=== PATIENT | male | born 1945 | race Caucasian/White ===

== ENCOUNTER 2020-05-06 11:39 | Outpatient (CLI) | payer MEDICARE, OTHER, SELFPAY ==
--- NOTE | ~2020-05-06 | CT_ITS ---
EXAMINATION: CT abdomen pelvis w con DATE: 05/06/2020 12:31 INDICATION: Prostate cancer TECHNIQUE: Computed tomography (CT) of the abdomen and pelvis was performed without intravenous contr ast. Automated exposure control and iterative reconstruction technique were employed. The dose-length product was 1062.94 mGy-cm. COMPARISON: None FINDINGS: Minimal atelectasis in the left lower lobe. Small pneumatocele in the right lower lobe. Arch size is normal. No pericardial or pleural effusion. There is wall thickening in the visualized distal esophag us which could be seen with reflux. 2 mm intraluminal density at the neck of the otherwise normal-mery earing gallbladder suspicious for gallstone. Diffuse hepatic steatosis. Spleen, pancreas and bilatera l adrenal glands are normal. 10 mm low-attenuation cyst at the lower pole of the right kidney. Bowels including the appendix are normal. Status post prostatectomy. Bladder is otherwise unremarkable. No free intraperitoneal gas or fluid. No pathologically enlarged abdominal or pelvic lymphadenopathy. Th ere are bridging osteophytes at multiple levels in the lower thoracic spine, consistent with diffuse idiopathic skeletal hyperostosis (DISH). Mild lumbar dextrocurvature with moderate to severe spondylo sis. Moderate bilateral hip osteoarthritis. Chronic fracture deformity at the calcified anterior left costochondral cartilage. 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 No other suspicious lytic or blastic bone lesions. Ank ylosis at the bilateral sacral iliac joints. IMPRESSION: 1. No evident metastatic disease. 2. 2 mm intraluminal density neck the otherwise normal gallbladder suspicious for cholelithiasis. 3. Diffuse hepatic steatosis. Reviewed, dictated and finalized at location A. IMPRESSION: 1. No evident metastatic disease. 2. 2 mm intraluminal density neck the otherwise normal gallbladder suspicious f or cholelithiasis. 3. Diffuse hepatic steatosis.
--- NOTE | ~2020-05-06 | NM_ITS ---
EXAMINATION: NM bone scan whole body DATE: 05/06/2020 14:58 INDICATION: Prostate cancer. TECHNIQUE: 21.6 mCi Tc-99m HDP was administered intravenously. Delayed whole-body scintigrams were o btained. COMPARISON: CT abdomen and pelvis 05/06/2020, bone scan 05/19/2016 FINDINGS: There is joint-centered increased activity in the knees, feet, right ankle, acromioclavicul ar joints, and sternoclavicular joints without comparison, likely osteoarthritis. There are foci of i ncreased activity in the spine correlating with spondylosis by CT. IMPRESSION: 1. No evidence of metastatic disease. Reviewed, dictated and finalized at location A.
[2020-05-06 12:25] LABS: Estimated Glomerular Filt Rate 37
== END 2020-05-06 11:40 | disposition home or self-care (01) ==
PROVIDERS: PCP Family Medicine; Visit Provider Urology
DX: C61 Malignant neoplasm of prostate (principal); K76.0 Fatty (change of) liver, not elsewhere classified
CPT/HCPCS: 74177; 78306; A9561; Q9967

== ENCOUNTER 2022-04-18 10:03 | Outpatient (CLI) | payer MEDICARE, OTHER, SELFPAY ==
--- NOTE | ~2022-04-18 | NM_ITS ---
EXAMINATION: NM bone scan whole body DATE: 04/18/2022 13:51 INDICATION: Prostate cancer TECHNIQUE: 24 mCi Tc-99m HDP was administered intravenously. Delayed whole-body scintigrams were obt ained. COMPARISON: Bone scan dated 05/06/[address] abdomen pelvis dated 04/18/2022 FINDINGS: Likely degenerative joint centered uptake at the bilateral chronic likely joints, left knee, right an kle and bilateral feet. There is also mild likely enthesopathic uptake at the bilateral posterior kaylyn caneal tuberosities. Mild discogenic uptake with corresponding severe disc height loss and degenerati ve endplate changes at the left side of L4-L5. No other suspicious foci of abnormal bone uptake to vargas ggest metastatic disease. IMPRESSION: 1. No evidence of metastatic disease. Reviewed, dictated and finalized at location A.
== END 2022-04-18 10:04 | disposition home or self-care (01) ==
LOC: ANHIMG 10:06
PROVIDERS: PCP Family Medicine; Visit Provider Urology
DX: C61 Malignant neoplasm of prostate (principal)
CPT/HCPCS: 78306; A9561

== ENCOUNTER → 2022-04-18 10:34 | Outpatient (CLI) | payer MEDICARE, OTHER, SELFPAY ==
--- NOTE | ~2022-04-18 | CT_ITS ---
EXAMINATION: CT abdomen pelvis w con DATE: 04/18/2022 11:05 INDICATION: Prostate cancer. TECHNIQUE: Computed tomography (CT) of the abdomen and pelvis was performed with 100 mL Omnipaque 350 intravenous contrast. Automated exposure control and iterative reconstruction technique were employe d. The dose-length product was 1105.82 mGy-cm. COMPARISON: CT abdomen and pelvis 05/06/2020, bone scan 04/18/2022 FINDINGS: The visualized portions of the lung bases demonstrate mild atelectasis. No pleural effusion . The heart size is normal. No pericardial effusion. There is wall thickening of the distal esophagus , likely esophagitis. There are 4 masses at the liver surface measuring up to 5.5 x 2.2 cm. There are no masses elsewhere in the peritoneum to suggest that these are peritoneal implants rather than live r masses. The gallbladder, spleen, pancreas, and adrenal glands are normal. There is cortical thinnin g of the kidneys. There is a 9 mm cyst in right kidney. The appendix is normal. There are no patholog ically enlarged lymph nodes. There is no free intraperitoneal fluid. There are changes of prostatecto my. 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 There is severe lumbar spondylosis. IMPRESSION: 1. New liver masses, consistent with metastatic disease. Ultrasound-guided core needle biopsy is ciera mmended. Reviewed, dictated and finalized at location B. IMPRESSION: 1. New liver masses, consistent with metastatic disease. Ultrasound-guided core needle biopsy is recommended.
[2022-04-18 10:57] LABS: Estimated Glomerular Filt Rate 42
== END ==
PROVIDERS: PCP Family Medicine; Visit Provider Urology
DX: C61 Malignant neoplasm of prostate (principal); N28.1 Cyst of kidney, acquired; M47.816 Spondylosis without myelopathy or radiculopathy, lumbar region
CPT/HCPCS: 74177; Q9967

== ENCOUNTER 2022-05-10 03:58 | Outpatient (CLI) | payer MEDICARE, OTHER, SELFPAY ==
[2022-04-29 08:33] VITALS: BMI 31.4
--- NOTE | 2022-04-29 08:34 | PC.NURSE ---
Pre Radiology instructions Report to the Outpatient Waiting Room, entrance under the green pavilion located off [facility], at time ___8:30AM____ on date _05/10/22____. Procedure Time: _10:30AM . YOU MAY BE MONITORED AT HOSPITAL FOR UP TO 4 HOURS AFTER YOUR PROCEDURE. One visitor will be allowed to accompany the patient into the hospital. The visitor will be instructed to remain with patient at all times or leave the building due to restrictions. We will allow the visitor to come back to the postoperative area when patient is ready. NO children visitors allowed at this time. You and your visitor will be asked to self-screen and do not enter if you have any COVID symptoms. A mask is required within the hospital. Patients are to have no food or drink 6 hours prior to procedure time Driving will be restricted after the procedure, you must have a person to drive you home. Labs will be drawn in preop area and once reviewed, you will be taken to radiology area for procedure. When the procedure is completed, you will be taken to outpatient where you will be monitored for several hours. You may have one visitor in this area. Other than holding anti-coagulants, patient may take other medication(s) as scheduled. Prior to your appointment date patients are instructed to hold anti-coagulants after discussing with ordering provider to stop. If unable to discontinue anti-coagulants please notify radiologist. No aspirin or warfarin (Coumadin) for 7 days prior to the procedure. No clopidogrel (Plavix), ticagrelor (Brilinta), prasugrel (Effient) or dabigatran (Pradaxa) for 5 days prior to the procedure. No rivaroxaban (Xarelto), apixaban (Eliquis), dipyridamole (Aggrenox or Persantine) or cilostazol (Pletal) for 2 days prior to the procedure. Medications to discontinue per physician: NONE Date to take last dose: Please leave all valuables, including medications, at home the day of procedure. The hospital will not accept responsibility for valuables. Wear comfortable, loose fitting clothing. Follow any additional instructions given to you from ordering provider. Telephone instructions given to ___PATIENT and asked if any additional questions and then verbalized understanding. Patient advised to call scheduling provider office or registration scheduling [phone] if any additional questions.
[2022-05-10] VITALS (9 sets, daily range): BP systolic 119–147; BP diastolic 57–74; PULSE 49–68; RESP 14–18; TEMP 36.4; O2SAT 94–99
--- NOTE | ~2022-05-10 | US_ITS ---
EXAMINATION: US biopsy liver DATE: 05/10/2022 11:57 INDICATION: Prostate cancer with multiple masses along the periphery of the liver. TECHNIQUE: The procedure including the risks and benefits was discussed with the patient. Risks discu ssed included bleeding and infection. The patient understood the risks and agreed to proceed. The sk in overlying the posterolateral right hepatic lobe was prepped and draped in usual sterile fashion. Anesthetic was administered with 1% lidocaine subcutaneously. An 18 gauge core biopsy needle was adv anced under continuous ultrasound observation to the lesion of interest. 6 core biopsy specimens wer e obtained. The needle was removed and the entry site was cleaned and dressed. Post procedure ultra sound demonstrated no hemorrhage. FINDINGS: Ultrasound images demonstrate a 3.6 x 3.2 x 2.3 cm hypoechoic nodule along the periphery of the liver. There is echogenic fat in the acute margins at the junction of the mass in the liver and on one of the biopsies of the mass appeared to move with withdrawal of the needle separately from the liver favoring an extrahepatic potentially peroneal origin. IMPRESSION: 1. Successful Ultrasound-guided biopsy of a 3.6 cm mass at the periphery of the liver, imaging appear ance favors a peritoneal rather than hepatic origin. Reviewed, dictated and finalized at location A. IMPRESSION: 1. Successful Ultrasound-guided biopsy of a 3.6 cm mass at the periphery of the liver, imaging appearance favors a peritoneal rather than hepatic origin.
[2022-05-10] MEDS: SODIUM CHLORIDE 0.9% IV 1,000 ML 30 ML IV CONT (09:14)
[2022-05-10 09:18] LABS: Immature Platelet Fraction Pct 4.2 % (0.9-11.2); Mean Platelet Volume 10.1 fl (7.4-10.4); Platelet Count Result 148 k/mm3 (150-375)
[2022-05-10 09:28] LABS: INR 1.1; Prothrombin Time 13.6 Seconds (11.1-14.7)
== END 2022-05-10 15:45 | disposition home or self-care (01) ==
PROVIDERS: Radiology Diagnostic Radiology; PCP Family Medicine; Referring Provider Urology; Visit Provider Radiology Diagnostic Radiology
PROC: BF45ZZZ Ultrasonography of Liver (ICD-10-PCS; CPT 47000; principal; 2022-05-10 10:30)
DX: C61 Malignant neoplasm of prostate (principal); C78.7 Secondary malignant neoplasm of liver and intrahepatic bile duct
CPT/HCPCS: 36415; 47000; 76942; 85049; 85055; 85610; 88307; 88342; J7030

== ENCOUNTER 2024-11-08 03:12 | Day surgery (SDC) | payer MEDICARE, OTHER, SELFPAY ==
[2024-11-05 14:48] VITALS: BMI 28.5
--- OUTSIDE RECORDS SUMMARY | 2024-11-08 03:23 | XMS_ITS | Clinical Summary ---
[facility] Organization [facility] Address [address] [place]: [place] [address] Care Team Providers Care Associate Manager [employer]iliate Marketing Name Role Phone Unavailable Primary Care Provider Unavailabl e Medications allopurinoL (ZYLOPRIM) 300 mg tablet Take 1 Tablet (300 mg) by mouth daily. 30 Tablet 2 Active fluorouracil 5 % Cream Apply to affected areas twice daily for two weeks as directed 40 Gram 3 2 Active allopurinoL (ZYLOPRIM) 300 mg tablet Take 1 Tablet (300 mg) by mouth daily. 90 Tablet 2 12/10/2022 10:00 AM CDT 2 Active amLODIPine (NORVASC) 5 mg tablet Take 1 Tablet (5 mg) by mouth daily. 90 Tablet 3 08/07/2022 3:24 PM RECREATION THERAPY DIRECTOR 2 Active ALPRAZolam (XANAX) 0.25 mg tablet Take 1 Tablet (0.25 mg) by mouth 3 times daily as needed. 60 Tablet 2 Active triamcinolone acetonide (KENALOG) 0.1 % Cream Apply twice daily to rash for up to 2 weeks per month as needed. 453.6 Gram 1 3 Active nirmatrelvir-ri tonavir (Paxlovid, EUA,) 300(150mg x 2)-100 mg oral pack take TWO 150 mg tablets of nirmatrelvir with ONE 100 mg tablet of ritonavir twice daily for 5 days PO 30 Each 3 Active amoxicillin-cla vulanate (AUGMENTIN) 875-125 mg tablet TAKE 1 TABLET BY MOUTH TWICE DAILY UNTIL GONE 14 Tablet 11/18/2022 4:02 PM CDT 3 Active hydroCHLOROthia zide 25 mg tablet Take 1 Tablet (25 mg) by mouth daily. 30 Tablet 01/13/2023 3:44 PM CDT 3 Active triamterene-hyd roCHLOROthiazid e (MAXZIDE 25) 37.5-25 mg tablet Take 1 Tablet by mouth daily in the morning. 90 Tablet 1 09/17/2023 3:35 PM RECREATION THERAPY DIRECTOR 4 Active ALPRAZolam (XANAX) 0.25 mg tablet Take 1 Tablet (0.25 mg) by mouth 3 times daily as needed for anxiety 60 Tablet 1 09/17/2023 3:35 PM RECREATION THERAPY DIRECTOR 4 Active triamcinolone acetonide (KENALOG) 0.1 % Cream Apply to the affected area(s) four times daily 80 Gram 01/24/2024 6:36 PM CDT 4 Active acetaminophen-c odeine (TYLENOL #3) 300-30 mg tablet Take 1-2 Tablets by mouth every 6 hours as needed for pain. 30 Tablet 02/29/2024 3:53 PM CDT 4 Active triamterene-hyd roCHLOROthiazid e (MAXZIDE 25) 37.5-25 mg tablet Take 1 tablet by mouth every morning 90 Tablet 1 06/06/2024 1:30 PM RECREATION THERAPY DIRECTOR 4 Active ALPRAZolam (XANAX) 0.25 mg tablet Take 1 Tablet (0.25 mg) by mouth 3 times daily as needed. 60 Tablet 1 06/06/2024 1:23 PM RECREATION THERAPY DIRECTOR 4 Active bromfenac (Prolensa) 0.07 % Drops solution ADMINISTER 1 DROP IN BOTH EYES ONCE DAILY. 3 mL 1 5 Active Prolensa 0.07 % Drops solution Instill one drop into each eye one time daily as directed. 3 mL 5 Active Encounters Date Type Department Care Team Description 10/08/2024 External Device Data [facility] ABSTRACTION Provider, Abstract from Last 3 Months Social History Tobacco Use Types Packs/Day Years Used Date Smoking Tobacco: Never Assessed Sex and Gender Information Value Date Recorded Sex Assigned at Not on file Legal Sex Male 3:27 PM CDT Gender Identity Not on file Sexual Orientation Not on file Plan of Treatment Health Maintenance Due Date Last Done Comments DTAP/TDAP/TD VACCINES (1 - Tdap) 10/24/1966 PNEUMOCOCCAL VACCINE 50+ YEARS (1 of 1 - PCV) 10/24/18 98 ZOSTER VACCINE (1 of 2) 10/24/1997 RSV VACCINE (60+ or ) (1 - 1-dose 75+ series) 10/24/2022 INFLUENZA VACCINE (#1) 2024 Insurance RX [facility] Medicare Part D RX [employer] Medicare Part D RX [employer] ([employer]) [employer] RX [employer] Medicare Part B RX [employer]
--- OUTSIDE RECORDS SUMMARY | 2024-11-08 03:23 | XMS_ITS | Clinical Summary ---
Author Organization [facility] [address] Address [address] [place] [address] Care Team Providers Care Silo Man Name Role Phone Mook Gonzalez MD Primary Care Provider [phone] Allergies No known active allergies Medications ALPRAZolam (XANAX) 0.25 mg tabletIndication s:anxiety Take 1 tablet (0.25 mg total) by mouth daily as needed for anxiety One a week - or 2. 3 Active triamterene-hydr oCHLOROthiazide 37.5-25 mg per tabletIndication s:HTN Take 1 tablet/capsule by mouth every morning 3 Active darolutamide (NUBEQA) 300 mg tabletIndication s:Adenocarcinoma of prostate (HCC) Take 2 tablets (600 mg total) by mouth 2 (two) times a day Swallow tablets whole, take with food. 120 tablet 11 4 025 Active fexofenadine (CRUZ) 60 mg tabletIndication s:Allergic Conjunctivitis,A llergic Rhinitis Take 1 tablet (60 mg total) by mouth daily as needed (allergies) Active fluticasone propionate (FLONASE) 50 mcg/actuation nasal sprayIndications :Allergic Rhinitis Administer 1 spray into each nostril daily as needed for allergies Active docusate sodium (COLACE) 50 mg capsuleIndicatio ns:constipation Take 1 capsule (50 mg total) by mouth 2 (two) times a day as needed for constipation Active senna (SENOKOT) 8.6 mg tabletIndication s:constipation Take 1 tablet by mouth community education coordinator before breakfast Active acetaminophen (TYLENOL) 500 mg tabletIndication s:Pain Take 2 tablets (1,000 mg total) by mouth every 6 (six) hours as needed for pain Active naproxen (ALEVE) 220 mg tabletIndication s:Pain Take 1 tablet (220 mg total) by mouth every 12 (twelve) hours as needed for pain or headaches Active acetaminophen-as pirin-caffeine (EXCEDRIN MIGRAINE) 250-250-65 mg per tabletIndication s:Migraine Take 1 tablet by mouth every 6 (six) hours as needed for headaches Active Prolensa 0.07 % dropsIndications :Post-Op Ocular Inflammation Administer 1 drop into the right eye community education coordinator before breakfast 5 Active moxifloxacin (VIGAMOX) 0.5 % ophthalmic solutionIndicati ons:post eye surgery Administer 1 drop into the right eye 4 (four) times a day 5 Active prednisoLONE acetate (PRED FORTE) 1 % ophthalmic suspensionIndica tions:Severe Ocular Inflammation Administer 1 drop into the right eye 4 (four) times a day 5 Active Active Problems Problem Noted Date Diagnosed Date Malignant neoplasm metastatic to liver 2 Hepatic steatosis 06/17/2022 Adenocarcinoma of prostate 06/14/2022 Overview (06/14/2022): Diagnosed May. GL 7 RP & IMRT done. Consult with Dr Erin Wilkerson 06-21-22. Sinus bradycardia 01/31/2017 Resolved Problems Problem Noted Date Diagnosed Date Resolved Date Nuclear sclerotic cataract of right eye 06/04/2024 07/31/2024 Nuclear sclerotic cataract of left eye 06/04/2024 08/14/2024 Encounters Date Type Department Care Team Description 11/05/2024 12:15 PM CDT Infusion [facility] - Infusion [address] [facility] Floor 6 [place] [address] Malignant neoplasm metastatic to liver (HCC) (Primary Dx); Adenocarcinoma of prostate (HCC) 11/05/2024 11:15 AM CDT Office Visit [facility] [address] [facility] Floor 5 [place] [address] Sameer Wilkerson MD Adenocarcinoma of prostate (HCC) (Primary Dx); Malignant neoplasm metastatic to liver (HCC) 11/05/2024 10:15 AM CDT Lab [facility] - Lab Collection [facility] [facility] Floor 5 [place] [address] Adenocarcinoma of prostate (HCC); Malignant neoplasm metastatic to liver (HCC) 08/14/2024 9:30 AM CUSTOMER SERVICE ASSOCIATE - 08/14/2024 10:30 AM CUSTOMER SERVICE ASSOCIATE Surgery [facility] Operating [facility]) [address] [place] [id number] Yamil Castillo MD COMPLEX EXTRACTION CATARACT - PHACOEMULSIFICATION AND LENS IMPLANT 08/14/2024 9:24 AM CUSTOMER SERVICE ASSOCIATE Anesthesia Event [facility] ([facility]) [address] [place] [phone] Crispin aMrk MD Brake, Barbara E., NP 08/14/2024 7:22 AM CUSTOMER SERVICE ASSOCIATE - 08/14/2024 11:16 AM CUSTOMER SERVICE ASSOCIATE Hospital Encounter [facility] ([facility]) [address] [place] [phone] Yamil Castillo MD Discharge Disposition: Discharge to home or self care 08/13/2024 12:30 PM CUSTOMER SERVICE ASSOCIATE Infusion [facility] - Infusion [address] [facility] Floor 6 [place] [address] Malignant neoplasm metastatic to liver (HCC) (Primary Dx); Adenocarcinoma of prostate (HCC) 08/13/2024 11:30 AM CUSTOMER SERVICE ASSOCIATE Office Visit [facility] [address] [place] [address] [address] 5 [place] [address] Sameer Wilkerson MD Adenocarcinoma of prostate (HCC) (Primary Dx); Malignant neoplasm metastatic to liver (HCC) 08/13/2024 10:30 AM CUSTOMER SERVICE ASSOCIATE Lab [facility] - Lab Collection [facility] [facility] Floor 5 [place] [address] Adenocarcinoma of prostate (HCC); Malignant neoplasm metastatic to liver (HCC) from Last 3 Months Immunizations Immunization Administration Dates Next Due Influenza, Quadrivalent, Rec ombinant, Egg Free, Preservative Free, Intramuscular 03/19/2019,06/25/2018 ZOSTER LIVE 08/25/2014 Surgical History Surgery Date Site/Laterality Comments PROSTATECTOMY around 2017 COLONOSCOPY around 2009 CATARACT EXTRACTION 07/31/2024 Right Medical History Medical History Date Comments Hypertension Sleep apnea wears cpap night ly Prostate cancer (HCC) Family History Medical History Relation Name Comments Cancer Father Heart failure Mother Anesthesia problems Neg Hx Relation Name Status Comments Brother Alive Father Mother Sister Alive Social History Tobacco Use Types Packs/Day Years Used Date Smoking Tobacco: Former Cigarettes 1 13 1 967 - 1980 Smokeless Tobacco: Never Tobacco Cessation:Counseling Given: Not Answered AUDIT-C Answer Date Recorded Q1: How often do you have a drink containing alcohol? 4 or more times a week 08/14/2024 Q2: How many drinks containi ng alcohol do you have on a typical day when you are drinking? 1 or 2 Q3: How often do you have si x or more drinks on one occasion? Never 08/14/2024 Personal Safety Answer Date Recorded Have you ever been in or are you currently in a harmful physical or emotional relationship or is someone making you feel afraid or unsafe? Denies 08/14/2024 Sex and Gender Information Value Date Recorded Sex Assigned at Not on file Legal Sex Male 6:21 AM CUSTOMER SERVICE ASSOCIATE Gender Identity Not on file Sexual Orientation Not on file Obstetrics History Last Filed Vital Signs Vital Sign Reading Time Taken Comments Blood Pressure 132/64 11/05/2024 10:44 AM CDT Pulse 65 11/05/2024 10:44 AM CDT Temperature 36.6 C (97.8 F) 11/05/2024 10:44 AM CDT Respiratory Rate 18 11/05/2024 10:44 AM CDT Oxygen Saturation 100% 11/05/2024 10:44 AM CDT Inhaled Oxygen Concentration - - Weight 94.8 kg (209 lb) 11/05/2024 10:44 AM CDT Height 181.7 cm (5' 11.54 ) 11/05/2024 10:44 AM CDT Body Mass Index 28.72 11/05/2024 10:44 AM CDT Plan of Treatment Health Maintenance Due Date Last Done Comments Depression Screening 1945 Hepatitis C Screening 1945 DTaP/Tdap/Td Vaccine (1 - Tdap) 10/24/1958 Hepatitis B Screening 10/24/1965 Pneumococcal vaccine 65+ (1 of 2 - PCV) 10/24/1966 Well Visit 65+ 10/24/2012 Zoster Vaccine (1 of 2) 10/20/2014 08/25/2014 Influenza Vaccine (Season Ended) 2025 03/19/20 19, 06/25/2018 Fall Risk Assessment 08/14/2025 08/14/2024 Abdominal Aortic Aneurysm (A AA) Screen Completed 05/14/2024, 06/13/2023, 12/15/2022, Additional history exists Medical Devices Implanted Type Area Electron Beam Welding Machine Operator Device Identifier Shelf Expiration Date Model / Serial / Lot [employer] Lens Iol Monofocal Anterior Biconvex Optic Single Piece Tecnis Simplicity 6.0x13.0 +23.5d Hydrophobic Acrylic [id number] - [id number] - [id number] Implanted:Qty: 1 on 08/14/2024 by Yamil Castillo MD at [facility] Lens Left: Eye [employer] [id number] 03/19/2027 [id number] / [id number] / 0 [employer] Lens Iol Tecnis Simplicity Single Piece Clear Caribou 22.5 Diopter [id number] - [id number] - [id number] Implanted:Qty: 1 on 07/31/2024 by Yamil Castillo MD at [facility] Right: Eye [employer] [id number] 05/27/2026 [id number] / [id number] / Procedures Procedure Name Priority Date/Time Associated Diagnosis Comments EGFR STAT 11/05/2024 10:19 AM CDT Adenocarcinoma of prostate (HCC) Malignant neoplasm metastatic to liver (HCC) LACTATE DEHYDROGENASE Routine 11/05/2024 10:19 AM CDT Adenocarcinoma of prostate (HCC) Malignant neoplasm metastatic to liver (HCC) COMPREHENSIVE METABOLIC PANEL STAT 11/05/2024 10:19 AM CDT Adenocarcinoma of prostate (HCC) Malignant neoplasm metastatic to liver (HCC) PSA DIAGNOSTIC Routine 11/05/2024 10:19 AM CDT Adenocarcinoma of prostate (HCC) Malignant neoplasm metastatic to liver (HCC) PSA DIAGNOSTIC Routine 11/05/2024 10:19 AM CDT Adenocarcinoma of prostate (HCC) Malignant neoplasm metastatic to liver (HCC) DIFFERENTIAL AUTO Routine 11/05/2024 10: 14 AM CDT Adenocarcinoma of prostate (HCC) Malignant neoplasm metastatic to liver (HCC) CBC WITH AUTO DIFFERENTIAL Routine 11/05/2024 10:14 AM CDT Adenocarcinoma of prostate (HCC) Malignant neoplasm metastatic to liver (HCC) EXTRACTION CATARACT WITH LENS IMPLANT. 08/14/2024 9:27 AM CUSTOMER SERVICE ASSOCIATE Nuclear sclerotic cataract of left eye Abnormal function of pupil of left eye EGFR STAT 08/13/2024 10:34 AM CUSTOMER SERVICE ASSOCIATE Adenocarcinoma of prostate (HCC) Malignant neoplasm metastatic to liver (HCC) DIFFERENTIAL AUTO Routine 08/13/2024 10: 34 AM CUSTOMER SERVICE ASSOCIATE Adenocarcinoma of prostate (HCC) Malignant neoplasm metastatic to liver (HCC) LACTATE DEHYDROGENASE Routine 08/13/2024 10:34 AM CUSTOMER SERVICE ASSOCIATE Adenocarcinoma of prostate (HCC) Malignant neoplasm metastatic to liver (HCC) CBC WITH AUTO DIFFERENTIAL Routine 08/13/2024 10:34 AM CUSTOMER SERVICE ASSOCIATE Adenocarcinoma of prostate (HCC) Malignant neoplasm metastatic to liver (HCC) COMPREHENSIVE METABOLIC PANEL STAT 08/13/2024 10:34 AM CUSTOMER SERVICE ASSOCIATE Adenocarcinoma of prostate (HCC) Malignant neoplasm metastatic to liver (HCC) PSA DIAGNOSTIC Routine 08/13/2024 10:34 AM CUSTOMER SERVICE ASSOCIATE Adenocarcinoma of prostate (HCC) Malignant neoplasm metastatic to liver (HCC) VITAMIN D 25 HYDROXY Routine 08/13/2024 10:34 AM CUSTOMER SERVICE ASSOCIATE Adenocarcinoma of prostate (HCC) Malignant neoplasm metastatic to liver (HCC) TOTAL TESTOSTERONE Routine 08/13/2024 10 :34 AM CUSTOMER SERVICE ASSOCIATE Adenocarcinoma of prostate (HCC) Malignant neoplasm metastatic to liver (HCC) CT CHEST ABDOMEN PELVIS W CONTRAST Schedule Routine, Read Routine (OP Routine) 05/14/2024 11:34 AM CDT Adenocarcinoma of prostate (HCC) Malignant neoplasm metastatic to liver (HCC) from Last 3 Months or Most Recently Relevant to Health Maintenance Results * (ABNORMAL) eGFR (11/05/2024 10:19 AM CDT) eGFR 35(L) >=60 mL/min/1. 73 m2 Comment: Interpretive Data Reference Interval Normal >/= 90 mL/min/1.73m2 Mildly decreased* 60 - 89 mL/min/1.73m2 Mildly to moderately decreased 45 - 59 mL/min/1.73m2 Moderately to severely decreased 30 - 44 mL/min/1.73m2 Severely decreased 15 - 29 mL/min/1.73m2 Kidney Failure < 15 mL/min/1.73m2 *Relative to young adult level Estimated glomerular filtration rate is determined by the 2020 CKD-EPI equation recommended by the National Kidney Foundation (A Unifying Approach to GFR Estimation: Recommendations of the NKF-ASK Task Force on Reassessing the Inclusion of Race in Diagnosing Kidney Disease, JASN 2020). The CKD-EPI equation should not be used for patients with unstable renal function and has not been validated in children and those over 70. Current interpretive data was last reviewed 2021. Blood 11/05/2024 10:1 9 AM CDT 11/05/2024 10:28 AM CDT us Sameer Wilkerson MD LAB BLOOD ORDERABLES Final Resul t [facility] Department [place] [address] * PSA diagnostic (11/05/2024 10:19 AM CDT) PSA-Total <0.02 <=6.20 ng/mL Comment: Interpretive Data AGE SEX REFERENCE INTERVAL 0 minutes-150 years Female None 0 minutes-49 years Male None 50-59 years Male 0-3.90 60-69 years Male 0-5.40 70-79 years Male 0-6.20 80-150 years Male 0-6.20 The Sven PSA Total assay procedure was used. Results from different manufacturers or methods may not be comparable. Serial testing should be performed using the same method. Current interpretive data last revised 21. Blood 11/05/2024 10:1 9 AM CDT 11/05/2024 10:28 AM CDT us Sameer Wilkerson MD LAB BLOOD ORDERABLES Final Resul t Performing Organization Address [facility] Phone Number [facility] Department [place] [address] * PSA diagnostic (11/05/2024 10:19 AM CDT) PSA-Total <0.02 <=6.20 ng/mL Comment: Interpretive Data AGE SEX REFERENCE INTERVAL 0 minutes-150 years Female None 0 minutes-49 years Male None 50-59 years Male 0-3.90 60-69 years Male 0-5.40 70-79 years Male 0-6.20 80-150 years Male 0-6.20 The Sven PSA Total assay procedure was used. Results from different manufacturers or methods may not be comparable. Serial testing should be performed using the same method. Current interpretive data last revised 21. Blood 11/05/2024 10:1 9 AM CDT 11/05/2024 10:28 AM CDT us Sameer Wilkerson MD LAB BLOOD ORDERABLES Final Resul t Performing Organization Address [facility] de Phone Number [facility] Department [place] [address] * Lactate dehydrogenase (LD) (11/05/2024 10:19 AM CDT) Lactate dehydrogenase (LDH) 217 100 - 250 Units/L Blood 11/05/2024 10:1 9 AM CDT 11/05/2024 10:28 AM CDT us Sameer Wilkerson MD LAB BLOOD ORDERABLES Final Resul t [facility] [address] [facility] Department [place] [address] * (ABNORMAL) Comprehensive metabolic panel (11/05/2024 10:19 AM CDT) Sodium 146(H) 135 - 145 mmol/L Potassium, pl 4.4 3.3 - 4.9 mmol/L [facility] Chloride 105 97 - 110 mmol/L [facility] CO2 32 22 - 32 mmol/L [facility] Anion gap 9 2 - 15 mmol/L [facility] BUN 29(H) 6 - 25 mg/dL [facility] Creatinine 1.93(H) 0.80 - 1.30 mg/dL [facility] Glucose 68(L) 70 - 199 mg/dL [facility] Comment: Interpretive Data Fasting glucose >/= 126 mg/dl is diagnostic for diabetes. Fasting is defined as no caloric intake for at least 8 hours. Fasting glucose between 100 mg/dl to 125 mg/dl is diagnostic of prediabetes. In a patient with classic symptoms of hyperglycemia or hyperglycemic crisis, a random glucose >/= 200 mg/dl is diagnostic for diabetes. In the absence of unequivocal hyperglycemia, results should be confirmed by repeat testing. The classification and Diagnosis of Diabetes Diabetes Care 202; 46: S19-S40. Current interpretive data was last revised 2022. Calcium 10.5(H) 8.5 - 10.3 mg/dL [facility] Bilirubin, total 0.4 0.1 - 1.2 mg/dL [facility] Protein, pl 7.7 6.5 - 8.5 g/dL [facility] Albumin 4.6 3.5 - 5.0 g/dL [facility] Alk phos 71 40 - 130 Units/L [facility] ALT 14 7 - 55 Units/L [facility] AST 25 10 - 50 Units/L [facility] Blood 11/05/2024 10:1 9 AM CDT 11/05/2024 10:28 AM CDT us Sameer Wilkerson MD LAB BLOOD ORDERABLES Final Resul t [facility] Department [place] [address] * (ABNORMAL) Differential, auto (11/05/2024 10:14 AM CDT) Neutrophil abs 2.34 1.50 - 6.50 K/cumm Comment:Testing performed by : [facility], [address] [place] [phone] Lymphocyte abs 1.21 0.80 - 3.30 K/cumm [facility] Comment:Testing performed by : [facility], [address] [place], [place] [phone] Monocyte abs 0.54 0.20 - 0.80 K/cumm [facility] Comment:Testing performed by : [facility], [address] [place] [address] Eosinophil abs 0.31 0.00 - 0.50 K/cumm [facility] Comment:Testing performed by : [facility], [address] [place] [phone] Basophil abs 0.11(H) 0.00 - 0.10 K/cumm [facility] Comment:Testing performed by : [facility], [address] [place] [phone] Neutrophil pct 52.0 % [facility] Comment: Interpretive Data Percent cell count reference ranges are not reported, since discordance with absolute values may lead to misinterpretation of CBC data. Current Interpretive Data was last revised on 2017. Testing performed by: [facility], [address] [place] [phone] Lymphocyte pct 26.9 % [facility] Comment: Interpretive Data Percent cell count reference ranges are not reported, since discordance with absolute values may lead to misinterpretation of CBC data. Current Interpretive Data was last revised on 2017. Testing performed by: [facility], [address] [place] [phone] Monocyte pct 11.9 % [facility] Comment: Interpretive Data Percent cell count reference ranges are not reported, since discordance with absolute values may lead to misinterpretation of CBC data. Current Interpretive Data was last revised on 2017. Testing performed by: [facility], [address] [place] [phone] Eosinophil pct 6.8 % [facility] Comment: Interpretive Data Percent cell count reference ranges are not reported, since discordance with absolute values may lead to misinterpretation of CBC data. Current Interpretive Data was last revised on 2017. Testing performed by: [facility], [address] [place] [address] Basophil pct 2.5 % [facility] Comment: Interpretive Data Percent cell count reference ranges are not reported, since discordance with absolute values may lead to misinterpretation of CBC data. Current Interpretive Data was last revised on 2017. Testing performed by: [facility], [address] [place] [address] Blood 11/05/2024 10:1 4 AM CDT 11/05/2024 10:23 AM CDT us Sameer Wilkerson MD LAB BLOOD ORDERABLES Final Resul t [facility] Department [place] [address] * (ABNORMAL) CBC with auto differential (11/05/2024 10:14 AM CDT) WBC 4.51 3.80 - 9.90 K/cumm Comment:Testing performed by : [facility], [address] [place] [address] Hgb 12.5(L) 13.0 - 17.5 g/dL [facility] Comment:Testing performed by : [facility], [address] [place] [address] Hct 36.9(L) 38.9 - 50.3 % [facility] Comment:Testing performed by : [facility], [address] [place] [address] Plt 175 150 - 400 K/cumm [facility] Comment:Testing performed by : [facility], [address] [place] [address] MPV 7.5 6.8 - 10.4 fL [facility] Comment:Testing performed by : [facility], [address] [place] [address] RBC 4.22(L) 4.30 - 5.80 M/cumm [facility] Comment:Testing performed by : [facility], [address] [place] [address] MCV 87.6 81.3 - 96.4 fL [facility] Comment:Testing performed by : [facility], [address] [place] [address] MCH 29.6 27.1 - 33.3 pg [facility] Comment:Testing performed by : [facility], [address] [place] [address] MCHC 33.8 32.3 - 35.7 g/dL [facility] Comment:Testing performed by : [facility], [address] [place] [address] RDW CV 13.5 11.1 - 14.9 % [facility] Comment:Testing performed by : [facility], [address] [place] [address] NRBC abs 0.00 0.00 - 0.01 K/cumm [facility] Comment:Testing performed by : [facility], [address] [place] [address] Blood 11/05/2024 10:1 4 AM CDT 11/05/2024 10:23 AM CDT us Sameer Wilkerson MD LAB BLOOD ORDERABLES Final Resul t [facility] Department [place] [address] * (ABNORMAL) eGFR (08/13/2024 10:34 AM CUSTOMER SERVICE ASSOCIATE) eGFR 43(L) >=60 mL/min/1. 73 m2 Comment: Interpretive Data Reference Interval Normal >/= 90 mL/min/1.73m2 Mildly decreased* 60 - 89 mL/min/1.73m2 Mildly to moderately decreased 45 - 59 mL/min/1.73m2 Moderately to severely decreased 30 - 44 mL/min/1.73m2 Severely decreased 15 - 29 mL/min/1.73m2 Kidney Failure < 15 mL/min/1.73m2 *Relative to young adult level Estimated glomerular filtration rate is determined by the 2020 CKD-EPI equation recommended by the National Kidney Foundation (A Unifying Approach to GFR Estimation: Recommendations of the NKF-ASK Task Force on Reassessing the Inclusion of Race in Diagnosing Kidney Disease, JASN 2020). The CKD-EPI equation should not be used for patients with unstable renal function and has not been validated in children and those over 70. Current interpretive data was last reviewed 2021. Blood 08/13/2024 10:3 4 AM CUSTOMER SERVICE ASSOCIATE 08/13/2024 10:42 AM CUSTOMER SERVICE ASSOCIATE us Sameer Wilkerson MD LAB BLOOD ORDERABLES Final Resul t [facility] Department [place] [address] * Differential, auto (08/13/2024 10:34 AM CUSTOMER SERVICE ASSOCIATE) Pathologist [facility] Neutrophil abs 3.2 1.5 - 6.5 K/cumm Comment:Testing performed by : [facility], [address] [place] [phone] Lymphocyte abs 1.0 0.8 - 3.3 K/cumm [facility] Comment:Testing performed by : [facility], [address] [place] [phone] Monocyte abs 0.5 0.2 - 0.8 K/cumm [facility] Comment:Testing performed by : [facility], [address] [place] [phone] Eosinophil abs 0.4 0.0 - 0.5 K/cumm [facility] Comment:Testing performed by : [facility], [address] [place] [phone] Basophil abs 0.1 0.0 - 0.1 K/cumm [facility] Comment:Testing performed by : [facility], [address] [place] [phone] Neutrophil pct 61.8 % [facility] Comment: Interpretive Data Percent cell count reference ranges are not reported, since discordance with absolute values may lead to misinterpretation of CBC data. Current Interpretive Data was last revised on 2017. Testing performed by: [facility], [address] [place] [phone] Lymphocyte pct 19.5 % [facility] Comment: Interpretive Data Percent cell count reference ranges are not reported, since discordance with absolute values may lead to misinterpretation of CBC data. Current Interpretive Data was last revised on 2017. Testing performed by: [facility], [address] [place] [phone] Monocyte pct 10.5 % CERNER BJ Comment: Interpretive Data Percent cell count reference ranges are not reported, since discordance with absolute values may lead to misinterpretation of CBC data. Current Interpretive Data was last revised on 2017. Testing performed by: [facility], [address] [place] [phone] Eosinophil pct 6.9 % CERNER BJ Comment: Interpretive Data Percent cell count reference ranges are not reported, since discordance with absolute values may lead to misinterpretation of CBC data. Current Interpretive Data was last revised on 2017. Testing performed by: [facility], [address] [place] [phone] Basophil pct 1.3 % CERNER BJ Comment: Interpretive Data Percent cell count reference ranges are not reported, since discordance with absolute values may lead to misinterpretation of CBC data. Current Interpretive Data was last revised on 2017. Testing performed by: [facility], [address] [place] [phone] Blood 08/13/2024 10:3 4 AM CUSTOMER SERVICE ASSOCIATE 08/13/2024 10:37 AM CUSTOMER SERVICE ASSOCIATE us Sameer Wilkerson MD LAB BLOOD ORDERABLES Final Resul t [facility] Department [place] [address] * (ABNORMAL) CBC with auto differential (08/13/2024 10:34 AM CUSTOMER SERVICE ASSOCIATE) WBC 5.3 3.8 - 9.9 K/cumm Comment:Testing performed by : [facility], [address] [place] [address] Hgb 12.5(L) 13.0 - 17.5 g/dL SUBHASH ORDOÑEZ Comment:Testing performed by : [facility], [address] [place] [address] Hct 37.6(L) 38.9 - 50.3 % SUBHASH ORDOÑEZ Comment:Testing performed by : [facility], [address] [place] [address] Plt 168 150 - 400 K/cumm SUBHASH ORDOÑEZ Comment:Testing performed by : [facility], [address] [place] [address] MPV 7.8 6.8 - 10.4 fL SUBHASH ORDOÑEZ Comment:Testing performed by : [facility], [address] [place] [address] RBC 4.45 4.30 - 5.80 M/cumm SUBHASH ORDOÑEZ Comment:Testing performed by : [facility], [address] [place] [address] MCV 84.5 81.3 - 96.4 fL CERMUKUND ORDOÑEZ Comment:Testing performed by : [facility], [address] [place] [address] MCH 28.0 27.1 - 33.3 pg CERMUKUND ORDOÑEZ Comment:Testing performed by : [facility], [address] [place] [address] MCHC 33.2 32.3 - 35.7 g/dL [facility] Comment:Testing performed by : [facility], [address] [place] [phone] RDW CV 13.8 11.1 - 14.9 % [facility] Comment:Testing performed by : [facility], [address] [place] [phone] NRBC abs 0.00 0.00 - 0.01 K/cumm [facility] Comment:Testing performed by : [facility], [address] [place] [phone] Blood 08/13/2024 10:3 4 AM CUSTOMER SERVICE ASSOCIATE 08/13/2024 10:37 AM CUSTOMER SERVICE ASSOCIATE us Sameer Wilkerson MD LAB BLOOD ORDERABLES Final Resul t Performing Organization Address [facility] de Phone Number [facility] Department [place] [address] * Vitamin D 25 hydroxy (08/13/2024 10:34 AM CUSTOMER SERVICE ASSOCIATE) Vitamin D 25-OH 40 30 - 80 ng/mL Blood 08/13/2024 10:3 4 AM CUSTOMER SERVICE ASSOCIATE 08/13/2024 10:42 AM CUSTOMER SERVICE ASSOCIATE us Sameer Wilkerson MD LAB BLOOD ORDERABLES Final Resul t Performing Organization Address [facility] de Phone Number [facility] [place] [address] * (ABNORMAL) Total testosterone (08/13/2024 10:34 AM CUSTOMER SERVICE ASSOCIATE) Testosterone <5.0(L) 193.0 - 740.0 ng/dL Blood 08/13/2024 10:3 4 AM CUSTOMER SERVICE ASSOCIATE 08/13/2024 11:02 AM CUSTOMER SERVICE ASSOCIATE us Sameer Wilkerson MD LAB BLOOD ORDERABLES Final Resul t Performing Organization Address City/[facility]/ZIP Co de Phone Number [facility] [place] [address] * PSA diagnostic (08/13/2024 10:34 AM CUSTOMER SERVICE ASSOCIATE) PSA-Total <0.02 <=6.20 ng/mL Comment: Interpretive Data AGE SEX REFERENCE INTERVAL 0 minutes-150 years Female None 0 minutes-49 years Male None 50-59 years Male 0-3.90 60-69 years Male 0-5.40 70-79 years Male 0-6.20 80-150 years Male 0-6.20 The Sven PSA Total assay procedure was used. Results from different manufacturers or methods may not be comparable. Serial testing should be performed using the same method. Current interpretive data last revised 21. Blood 08/13/2024 10:3 4 AM CUSTOMER SERVICE ASSOCIATE 08/13/2024 10:42 AM CUSTOMER SERVICE ASSOCIATE us Sameer Wilkerson MD LAB BLOOD ORDERABLES Final Resul t Performing Organization Address [facility] Co de Phone Number [facility] [place] [address] * Lactate dehydrogenase (LD) (08/13/2024 10:34 AM CUSTOMER SERVICE ASSOCIATE) Lactate dehydrogenase (LDH) 190 100 - 250 Units/L Blood 08/13/2024 10:3 4 AM CUSTOMER SERVICE ASSOCIATE 08/13/2024 10:42 AM CUSTOMER SERVICE ASSOCIATE us Sameer Wilkerson MD LAB BLOOD ORDERABLES Final Resul t Performing Organization Address City/[facility] Co de Phone Number [facility] [place] [address] * (ABNORMAL) Comprehensive metabolic panel (08/13/2024 10:34 AM CUSTOMER SERVICE ASSOCIATE) Sodium 144 135 - 145 mmol/L Potassium, pl 4.1 3.3 - 4.9 mmol/L [facility] Chloride 104 97 - 110 mmol/L [facility] CO2 33(H) 22 - 32 mmol/L [facility] Anion gap 7 2 - 15 mmol/L [facility] BUN 35(H) 6 - 25 mg/dL [facility] Creatinine 1.64(H) 0.80 - 1.30 mg/dL [facility] Glucose 91 70 - 199 mg/dL [facility] Comment: Interpretive Data Fasting glucose >/= 126 mg/dl is diagnostic for diabetes. Fasting is defined as no caloric intake for at least 8 hours. Fasting glucose between 100 mg/dl to 125 mg/dl is diagnostic of prediabetes. In a patient with classic symptoms of hyperglycemia or hyperglycemic crisis, a random glucose >/= 200 mg/dl is diagnostic for diabetes. In the absence of unequivocal hyperglycemia, results should be confirmed by repeat testing. The classification and Diagnosis of Diabetes Diabetes Care 2021; 46: S19-S40. Current interpretive data was last revised 2022. Calcium 10.4(H) 8.5 - 10.3 mg/dL [facility] Bilirubin, total 0.4 0.1 - 1.2 mg/dL [facility] Protein, pl 7.6 6.5 - 8.5 g/dL [facility] Albumin 4.4 3.5 - 5.0 g/dL [facility] Alk phos 75 40 - 130 Units/L [facility] ALT 10 7 - 55 Units/L [facility] AST 21 10 - 50 Units/L [facility] Blood 08/13/2024 10:3 4 AM CUSTOMER SERVICE ASSOCIATE 08/13/2024 10:42 AM CUSTOMER SERVICE ASSOCIATE us Sameer Wilkerson MD LAB BLOOD ORDERABLES Final Resul t [facility] Department of Laboratories [place], [place] [id number] * CT chest abdomen pelvis with contrast (05/14/2024 11:34 AM CDT) Anatomical Region Laterality Modality Body N/A Computed Tomogra phy 05/14/2024 11:5 3 AM CDT Impressions 05/14/2024 4:49 PM CDT Stable lesion adjacent to hepatic segment 6 compatible with post treatment changes with no evidence of new metastatic disease in the chest, abdomen, or pelvis. Dictated by: Ted Best MD PHD The radiology attending physician has personally reviewed this study, and had reviewed and/or edited this written report and agrees with it. Electronically signed by: Cindy Stanford M.D. Narrative 05/14/2024 4:49 PM CDT EXAMINATION: CT CHEST ABDOMEN PELVIS W CONTRAST HISTORY: Prostate cancer, PSA less than 0.02 02/27/2024, radical prostatectomy in 2016 TECHNIQUE: Transaxial computed tomographic images of the chest abdomen pelvis were obtained with intravenous contrast according to the standard protocol after the uneventful administration of 70 mL Opti-Ray 350 intravenous contrast. COMPARISON: 06/13/2023 FINDINGS: CHEST: No lymphadenopathy is seen in the chest. Normal heart size with trace pericardial fluid. Tiny hiatal hernia. No suspicious pulmonary nodule. No pleural effusion or pneumothorax. A 0.2 cm nodule along the right minor fissure on series 3 image 80 likely represents a jax-fissural lymph node. ABDOMEN/PELVIS: No new suspicious hepatic lesion. Soft tissue adjacent to hepatic segment 6 measuring 2.8 cm on series 2 image 163 is unchanged compared to the prior examination and is favored to represent post treatment changes. Normal gallbladder. The adrenal glands, pancreas, and spleen are normal. The kidneys are mildly atrophic with no suspicious exophytic renal lesion or hydronephrosis. The bladder is mildly thick-walled and incompletely distended. No evidence of bowel obstruction. No pneumoperitoneum. Trace ascites seen in the pelvis. No new lymphadenopathy seen in the abdomen or pelvis. The abdominal aorta is mildly calcified and normal in course and caliber. No suspicious osseous lesion. Procedure Note Cindy Stanford MD - 05/14/2024 EXAMINATION: CT CHEST ABDOMEN PELVIS W CONTRAST HISTORY: Prostate cancer, PSA less than 0.02 02/27/2024, radical prostatectomy in 2016 TECHNIQUE: Transaxial computed tomographic images of the chest abdomen pelvis were obtained with intravenous contrast according to the standard protocol after the uneventful administration of 70 mL Opti-Ray 350 intravenous contrast. COMPARISON: 06/13/2023 FINDINGS: CHEST: No lymphadenopathy is seen in the chest. Normal heart size with trace pericardial fluid. Tiny hiatal hernia. No suspicious pulmonary nodule. No pleural effusion or pneumothorax. A 0.2 cm nodule along the right minor fissure on series 3 image 80 likely represents a jax-fissural lymph node. ABDOMEN/PELVIS: No new suspicious hepatic lesion. Soft tissue adjacent to hepatic segment 6 measuring 2.8 cm on series 2 image 163 is unchanged compared to the prior examination and is favored to represent post treatment changes. Normal gallbladder. The adrenal glands, pancreas, and spleen are normal. The kidneys are mildly atrophic with no suspicious exophytic renal lesion or hydronephrosis. The bladder is mildly thick-walled and incompletely distended. No evidence of bowel obstruction. No pneumoperitoneum. Trace ascites seen in the pelvis. No new lymphadenopathy seen in the abdomen or pelvis. The abdominal aorta is mildly calcified and normal in course and caliber. No suspicious osseous lesion. IMPRESSION: Stable lesion adjacent to hepatic segment 6 compatible with post treatment changes with no evidence of new metastatic disease in the chest, abdomen, or pelvis. Dictated by: Ted Best MD PHD The radiology attending physician has personally reviewed this study, and had reviewed and/or edited this written report and agrees with it. Electronically signed by: Cindy Stanford M.D. Sameer Wilkerson MD IMG CT PROCEDURES Final Result from Last 3 Months or Most Recently Relevant to Health Maintenance Insurance [facility] MEDICARE [address] [id number] MEDICARE [employer] [place] [employer] Advance Directives For more information, please contact: [phone] * Full Code (Latest Code Status on File) Date Activated Date Inactivated Comments 08/14/2024 7:31 AM 08/14/2024 3:16 PM * Full Code Date Activated Date Inactivated Comments 07/31/2024 7:44 AM 07/31/2024 4:57 PM Care Teams Silo Man Relationship Specialty Start Date End Date Mook Gonzalez MD PCP - General Family Medicine 09/29/22
--- OUTSIDE RECORDS SUMMARY | 2024-11-08 03:23 | XMS_ITS | Continuity of Care Document ---
Author Organization [facility] Address [address] [place] [address] [place] [address] Phone Care Team Providers Care Motion Picture Commentator Name Role Phone [facility] Unavailable Unavail able Marii Herrmann Unavailable Unavailable Advance Directives Directive Yes / No Effective Date File Name No Information Encounters Encounter Description Practice Location Reason(s) For Visit Diagnoses Date Provider Providers Copied on Encounter [facility], [address], [place], [place], [id number], [place] tel:[phone] [facility] No Information 2-[address] [facility] [address] [facility] [address], [address], [place], [place], [id number] , [place]. [phone] Consulting Provider: Marii Herrmann, [address] [place] [address], [address]. tel:[phone] Family History Family Member Type Diagnosis Age At Onset No Information Payers Payer name Insurance type Covered alliance party ID Authoriza tion(s) No Information Social History Type Description Quantity Date Captured Comments Sex Male Smoking Status No Information Chief Complaint And Reason For Visit No Information Reason For Referral Reason For Referral No Information History Of Present Illness Encounter Date Complaint History Of Prese nt Illness No Information Functional Status Date Functional Assessmen t No Information Instructions Date Instruction Additional Infor mation No Information Assessments Type Assessment Date No Information Patient Care Teams Name Effective Dates (start - stop) Status Members No Information
--- OUTSIDE RECORDS SUMMARY | 2024-11-08 03:23 | XMS_ITS ---
Author Organization [facility] [address] Address [address] [place] [address] Care Team Providers Care Multigraph Operator Name Role Phone Mook Gonzalez MD Primary Care Provider [phone] Active Problems Problem Noted Date Diagnosed Date Malignant neoplasm metastatic to liver Hepatic steatosis 06/17/2022 Adenocarcinoma of prostate 06/14/2022 Overview (06/14/2022): Diagnosed May. GL 7 RP & IMRT done. Consult with Dr Erin Wilkerson 06-21-22. Sinus bradycardia 01/31/2017 Current Treatment and Therapy Plans Darolutamide PO 28 Day Cycles - Prostate* Plan Start Date:06/15/2023 Plan Provider:Sameer Wilkerson MD Linked Problems Adenocarcinoma of prostate ( HCC) Treatment Medications Current Day (Day 1 , Cycle 4 - Planned for 08/04/2024) Next Day (Day 1, Cycle 5 - Planned for 09/01/2024) darolutamide (NUBEQA) darolutamide (SHERMAN QA) 300 mg tablet darolutamide (NUBEQA) 300 mg tablet Leuprolide Every 3 Months - Prostate* Plan Start Date:06/27/2022 Plan Provider:Sameer Wilkerson MD Linked Problems Adenocarcinoma of prostate ( HCC)Malignant neoplasm metastatic to liver (HCC) Treatment Medications Current Day (Day 1 , Cycle 12 - Planned for 01/28/2025) leuprolide (3 month) (ELIGAR D)leuprolide (ELIGARD) leuprolide (3 month) (ELIGARD) subcutaneous injection 22.5 mg Past Treatment and Therapy Plans Line Care Plan Name Start Date Discontinue Date Treatment Medications Discontinue Reason Plan Provider IV Maintenance Therapy Plan 10/20/2022 07/26/2024 No medications scheduled. Therapy Complete Sameer Wilkerson MD Oncology Treatment (2) Plan Name Start Date Discontinue Date Treatment Medications Discontinue Reason Plan Provider Cycles DOCEtaxel / PredniSONE 21 day Cycles - Prostate 3 12/05/2023 DOCEtaxel (TAXOTERE)DOCE taxel (TAXOTERE) IVPB in 250 mL (vial 20mg/mL) Therapy Complete Sameer Wilkerson MD 6 of 6 cycles started Lifetime Dose Tracking * Chemical Lifetime Dose Automatic Entry Manual Entr y DLP 3,414 mGycm 3,414 mGycm 0 mGycm Resolved Problems Problem Noted Date Diagnosed Date Resolved Date Nuclear sclerotic cataract of right eye 06/04/2024 07/31/2024 Nuclear sclerotic cataract of left eye 06/04/2024 08/14/2024
--- OUTSIDE RECORDS SUMMARY | 2024-11-08 03:23 | XMS_ITS | Referral Summary ---
Author Organization [facility] [address] Address [address] [place] [address] Care Team Providers Care [employer] Police Captain Name Role Phone Mook Gonzalez MD Primary Care Provider [phone] Encounters Date Type Department Care Team Description 11/05/2024 12:15 PM CDT Infusion [facility] - Infusion [address] [facility] Floor 6 [place] [address] Malignant neoplasm metastatic to liver (HCC) (Primary Dx); Adenocarcinoma of prostate (HCC) 11/05/2024 10:15 AM CDT Lab [facility] - Lab Collection [address] [facility] Floor 5 [place] [address] Adenocarcinoma of prostate (HCC); Malignant neoplasm metastatic to liver (HCC) 11/05/2024 11:15 AM CDT Office Visit [facility] Oncology [address] [facility] Floor 5 [place] [address] Sameer Wilkerson MD Adenocarcinoma of prostate (HCC) (Primary Dx); Malignant neoplasm metastatic to liver (HCC) 08/14/2024 9:30 AM REAL TIME ANALYST - 08/14/2024 10:30 AM REAL TIME ANALYST Surgery [facility] Operating [facility] [address] [place] [address] Yamil Castillo MD COMPLEX EXTRACTION CATARACT - PHACOEMULSIFICATION AND LENS IMPLANT 08/14/2024 9:24 AM REAL TIME ANALYST Anesthesia Event [facility] [address] [place] [address] Crispin Mark MD Brake, Barbara E., ORTHOPEDIC PODIATRIST 08/14/2024 7:22 AM REAL TIME ANALYST - 08/14/2024 11:16 AM REAL TIME ANALYST Hospital Encounter [facility] Operating [facility]) [facility] [place] [address] Yamil Castillo MD Discharge Disposition: Discharge to home or self care 08/13/2024 12:30 PM REAL TIME ANALYST Infusion [facility] - Infusion [address] [facility] Floor 6 [place] [address] Malignant neoplasm metastatic to liver (HCC) (Primary Dx); Adenocarcinoma of prostate (HCC) 08/13/2024 10:30 AM REAL TIME ANALYST Lab [facility] - Lab Collection [address] [facility] Floor 5 [place] [address] Adenocarcinoma of prostate (HCC); Malignant neoplasm metastatic to liver (HCC) 08/13/2024 11:30 AM REAL TIME ANALYST Office Visit [facility] Oncology [facility] Floor 5 [place] [address] Sameer Wilkerson MD Adenocarcinoma of prostate (HCC) (Primary Dx); Malignant neoplasm metastatic to liver (HCC) from Last 3 Months Allergies No known active allergies Medications ALPRAZolam [...] tabletIndication s:constipation Take 1 tablet by mouth poultry pinner before breakfast Active acetaminophen (TYLENOL) 500 mg [...] Administer 1 drop into the right eye poultry pinner before breakfast 5 Active moxifloxacin (VIGAMOX) 0.5 [...] IMRT done. Consult with Dr Erin Wilkerson 622. Sinus bradycardia 01/31/2017 Resolved Problems Problem Noted Date Diagnosed Date Resolved Date Nuclear sclerotic cataract of right eye 06/04/2024 07/31/2024 Nuclear sclerotic cataract of left eye 06/04/2024 08/14/2024 Immunizations Immunization Administration Dates Next Due Influenza, Quadrivalent, Rec ombinant, Egg Free, Preservative Free, Intramuscular 03/19/2019,06/25/2018 ZOSTER LIVE 08/25/2014 Social History Tobacco Use Types Packs/Day Years Used Date Smoking Tobacco: Former Cigarettes 1 13 1 967 - 1979 Smokeless Tobacco: Never Tobacco Cessation:Counseling Given: Not [...] on file Legal Sex Male 6:21 AM REAL TIME ANALYST Gender Identity Not on file Sexual Orientation Not on file Last Filed Vital Signs Vital Sign Reading [...] 11/05/2024 10:44 AM CDT Plan of Treatment Not on file Medical Devices Implanted Type Area Crop Scout Device Identifier Shelf Expiration Date Model / Serial / Lot [employer] Lens Iol Monofocal Anterior Biconvex Optic Single Piece Tecnis Simplicity 6.0x13.0 +23.5d Hydrophobic Acrylic [id number] - [id number] - [id number] Implanted:Qty: 1 on 08/14/2024 by Yamil Castillo MD at [facility] Lens Left: Eye [employer] [id number] 03/19/2027 [id number] / 0 [employer] Lens Iol Tecnis Simplicity Single Piece Clear Ballard 22.5 Diopter [id number] - [id number] - [id number] Implanted:Qty: 1 on 07/31/2024 by Yamil Castillo MD at [facility] Right: Eye [employer] [id number] 05/27/2026 [id number] / [id number] / Procedures Procedure Name Priority Date/Time [...] CATARACT WITH LENS IMPLANT. 08/14/2024 9:27 AM REAL TIME ANALYST Nuclear sclerotic cataract of left eye Abnormal function of pupil of left eye EGFR STAT 08/13/2024 10:34 AM REAL TIME ANALYST Adenocarcinoma of prostate (HCC) Malignant neoplasm metastatic to liver (HCC) DIFFERENTIAL AUTO Routine 08/13/2024 10: 34 AM REAL TIME ANALYST Adenocarcinoma of prostate (HCC) Malignant neoplasm metastatic to liver (HCC) LACTATE DEHYDROGENASE Routine 08/13/2024 10:34 AM REAL TIME ANALYST Adenocarcinoma of prostate (HCC) Malignant neoplasm metastatic to liver (HCC) CBC WITH AUTO DIFFERENTIAL Routine 08/13/2024 10:34 AM REAL TIME ANALYST Adenocarcinoma of prostate (HCC) Malignant neoplasm metastatic to liver (HCC) COMPREHENSIVE METABOLIC PANEL STAT 08/13/2024 10:34 AM REAL TIME ANALYST Adenocarcinoma of prostate (HCC) Malignant neoplasm metastatic to liver (HCC) PSA DIAGNOSTIC Routine 08/13/2024 10:34 AM REAL TIME ANALYST Adenocarcinoma of prostate (HCC) Malignant neoplasm metastatic to liver (HCC) VITAMIN D 25 HYDROXY Routine 08/13/2024 10:34 AM REAL TIME ANALYST Adenocarcinoma of prostate (HCC) Malignant neoplasm metastatic to liver (HCC) TOTAL TESTOSTERONE Routine 08/13/2024 10 :34 AM REAL TIME ANALYST Adenocarcinoma of prostate (HCC) Malignant neoplasm metastatic [...] Inclusion of Race in Diagnosing Kidney Disease, MEIRSN 2020). The CKD-EPI equation should not be used for patients with unstable renal function and has not been validated in children and those over 70. Current interpretive data was last reviewed 2021. Blood 11/05/2024 10:1 9 AM CDT 11/05/2024 10:28 AM CDT Sameer Wilkerson MD LAB BLOOD ORDERABLES Final Resul t Performing Organization Address [facility] de Phone Number [facility] Department [place] [address] * PSA diagnostic (11/05/2024 10:19 AM CDT) [...] ORDERABLES Final Resul t Performing Organization Address [facility] de Phone Number [facility] Department [place] [address] * PSA diagnostic (11/05/2024 10:19 AM CDT) [...] ORDERABLES Final Resul t Performing Organization Address City/[facility] Co de Phone Number [facility] [place] [address] * Lactate dehydrogenase (LD) (11/05/2024 10:19 AM CDT) Lactate dehydrogenase (LDH) 217 100 - 250 Units/L Blood 11/05/2024 10:1 9 AM CDT 11/05/2024 10:28 AM CDT us Sameer Wilkerson MD LAB BLOOD ORDERABLES Final Resul t Performing Organization Address [facility] de Phone Number [facility] [place] [address] * (ABNORMAL) Comprehensive metabolic panel (11/05/2024 10:19 AM CDT) Sodium 146(H) 135 - 145 mmol/L Potassium, pl 4.4 3.3 - 4.9 mmol/L [facility] Chloride 105 97 - 110 mmol/L [facility] CO2 32 22 - 32 mmol/L [facility] Anion gap 9 2 - 15 mmol/L [facility] BUN 29(H) 6 - 25 mg/dL [facility] Creatinine 1.93(H) 0.80 - 1.30 mg/dL [facility] Glucose 68(L) 70 - 199 mg/dL [facility] Comment: Interpretive Data Fasting glucose >/= 126 [...] 2022. Calcium 10.5(H) 8.5 - 10.3 mg/dL [facility] Bilirubin, total 0.4 0.1 - 1.2 mg/dL [facility] Protein, pl 7.7 6.5 - 8.5 g/dL [facility] Albumin 4.6 3.5 - 5.0 g/dL [facility] Alk phos 71 40 - 130 Units/L [facility] ALT 14 7 - 55 Units/L [facility] AST 25 10 - 50 Units/L [facility] Blood 11/05/2024 10:1 9 AM CDT 11/05/2024 10:28 AM CDT us Sameer Wilkerson MD LAB BLOOD ORDERABLES Final Resul t [facility] Department [place] [address] * (ABNORMAL) Differential, auto (11/05/2024 10:14 AM CDT) Neutrophil abs 2.34 1.50 - 6.50 K/cumm Comment:Testing performed by : [facility], [address] [place] [phone] Lymphocyte abs 1.21 0.80 - 3.30 K/cumm SUBHASH ORDOÑEZ Comment:Testing performed by : [facility], [address] [place] [phone] Monocyte abs 0.54 0.20 - 0.80 K/cumm [facility] Comment:Testing performed by : [facility], [address] [place] [phone] Eosinophil abs 0.31 0.00 - 0.50 K/cumm [facility] Comment:Testing performed by : [facility], [address] [place] [phone] Basophil abs 0.11(H) 0.00 - 0.10 K/cumm [facility] Comment:Testing performed by : [facility], [address] [place] [phone] Neutrophil pct 52.0 % [facility] Comment: Interpretive Data Percent cell count reference ranges are not reported, since discordance with absolute values may lead to misinterpretation of CBC data. Current Interpretive Data was last revised on 2017. Testing performed by: [facility], [address] [place] [address] Lymphocyte pct 26.9 % [facility] Comment: Interpretive Data Percent cell count reference ranges are not reported, since discordance with absolute values may lead to misinterpretation of CBC data. Current Interpretive Data was last revised on 2017. Testing performed by: [facility], [address] [place], [place] [id number] Monocyte pct 11.9 % [facility] Comment: Interpretive Data Percent cell count reference ranges are not reported, since discordance with absolute values may lead to misinterpretation of CBC data. Current Interpretive Data was last revised on 2017. Testing performed by: [facility], [address] [place] [phone] Eosinophil pct 6.8 % [facility] Comment: Interpretive Data Percent cell count reference ranges are not reported, since discordance with absolute values may lead to misinterpretation of CBC data. Current Interpretive Data was last revised on 2017. Testing performed by: [facility], [address] [place] [phone] Basophil pct 2.5 % [facility] Comment: Interpretive Data Percent cell count reference ranges are not reported, since discordance with absolute values may lead to misinterpretation of CBC data. Current Interpretive Data was last revised on 2017. Testing performed by: [facility], [address] [place] [phone] Blood 11/05/2024 10:1 4 AM CDT 11/05/2024 10:23 AM CDT us Sameer Wilkerson MD LAB BLOOD ORDERABLES Final Resul t [facility] Department [place] [address] * (ABNORMAL) CBC with auto differential (11/05/2024 10:14 AM CDT) WBC 4.51 3.80 - 9.90 K/cumm Comment:Testing performed by : [facility], [address] [place] [address] Hgb 12.5(L) 13.0 - 17.5 g/dL [facility] Comment:Testing performed by : [facility], [address] [place] [address] Hct 36.9(L) 38.9 - 50.3 % SUBHASH ORDOÑEZ Comment:Testing performed by : [facility], [address] [place] [address] Plt 175 150 - 400 K/cumm SUBHASH ORDOÑEZ Comment:Testing performed by : [facility], [address] [place] [address] MPV 7.5 6.8 - 10.4 fL [facility] Comment:Testing performed by : [facility], [address] [place] [address] RBC 4.22(L) 4.30 - 5.80 M/cumm SUBHASH ORDOÑEZ Comment:Testing performed by : [facility], [address] [place] [address] MCV 87.6 81.3 - 96.4 fL [facility] Comment:Testing performed by : [facility], [address] [place] [address] MCH 29.6 27.1 - 33.3 pg [facility] Comment:Testing performed by : [facility], [address] [place] [address] MCHC 33.8 32.3 - 35.7 g/dL [facility] Comment:Testing performed by : [facility], [address] [place] [phone] RDW CV 13.5 11.1 - 14.9 % [facility] Comment:Testing performed by : [facility], [address] [place] [phone] NRBC abs 0.00 0.00 - 0.01 K/cumm [facility] Comment:Testing performed by : [facility], [address] [place] [phone] Blood 11/05/2024 10:1 4 AM CDT 11/05/2024 10:23 AM CDT us Sameer Wilkerson MD LAB BLOOD ORDERABLES Final Resul t [facility] Department [place] [address] * (ABNORMAL) eGFR (08/13/2024 10:34 AM REAL TIME ANALYST) eGFR 43(L) >=60 mL/min/1. 73 m2 Comment: [...] reviewed 2021. Blood 08/13/2024 10:3 4 AM REAL TIME ANALYST 08/13/2024 10:42 AM REAL TIME ANALYST us Sameer Wilkerson MD LAB BLOOD ORDERABLES Final Resul t [facility] Department [place] [address] * Differential, auto (08/13/2024 10:34 AM REAL TIME ANALYST) Neutrophil abs 3.2 1.5 - 6.5 K/cumm Comment:Testing performed by : [facility], [address] [place] [phone] Lymphocyte abs 1.0 0.8 - 3.3 K/cumm [facility] Comment:Testing performed by : [facility], [address] [place] [phone] Monocyte abs 0.5 0.2 - 0.8 K/cumm [facility] Comment:Testing performed by : [facility], [address] [place] [phone] Eosinophil abs 0.4 0.0 - 0.5 K/cumm [facility] Comment:Testing performed by : [facility], [address] [place] [phone] Basophil abs 0.1 0.0 - 0.1 K/cumm [facility] Comment:Testing performed by : [facility], [address] [place] [phone] Neutrophil pct 61.8 % [facility] Comment: Interpretive Data Percent cell count reference ranges are not reported, since discordance with absolute values may lead to misinterpretation of CBC data. Current Interpretive Data was last revised on 2017. Testing performed by: [facility], [address] [place] [phone] Lymphocyte pct 19.5 % [facility] Comment: Interpretive Data Percent cell count reference ranges are not reported, since discordance with absolute values may lead to misinterpretation of CBC data. Current Interpretive Data was last revised on 2017. Testing performed by: [facility], [address] [place] [phone] Monocyte pct 10.5 % SUBHASH ORDOÑEZ Comment: Interpretive Data Percent cell count reference ranges are not reported, since discordance with absolute values may lead to misinterpretation of CBC data. Current Interpretive Data was last revised on 2017. Testing performed by: [facility], [address] [place] [phone] Eosinophil pct 6.9 % [facility] Comment: Interpretive Data Percent cell count reference ranges are not reported, since discordance with absolute values may lead to misinterpretation of CBC data. Current Interpretive Data was last revised on 2017. Testing performed by: [facility], [address] [place], [place] [phone] Basophil pct 1.3 % SU[facility]ASH ORDOÑE[facility] Comment: Interpretive Data Percent cell count reference ranges are not reported, since discordance with absolute values may lead to misinterpretation of CBC data. Current Interpretive Data was last revised on 2017. Testing performed by: [facility], [address] [place] [phone] Blood 08/13/2024 10:3 4 AM REAL TIME ANALYST 08/13/2024 10:37 AM REAL TIME ANALYST us Sameer Wilkerson MD LAB BLOOD ORDERABLES Final Resul t [facility] Department [place] [address] * (ABNORMAL) CBC with auto differential (08/13/2024 10:34 AM REAL TIME ANALYST) WBC 5.3 3.8 - 9.9 K/cumm Comment:Testing performed by : [facility], [address] [place] [phone] Hgb 12.5(L) 13.0 - 17.5 g/dL [facility] Comment:Testing performed by : [facility], [address] [place] [address] Hct 37.6(L) 38.9 - 50.3 % [facility] Comment:Testing performed by : [facility], [address] [place] [address] Plt 168 150 - 400 K/cumm CER[facility] OR[facility]ÑE[facility] Comment:Testing performed by : [facility], [address] [place] [address] MPV 7.8 6.8 - 10.4 fL [facility] Comment:Testing performed by : [facility], [address] [place] [address] RBC 4.45 4.30 - 5.80 M/cumm [facility] Comment:Testing performed by : [facility], [address] [place] [address] MCV 84.5 81.3 - 96.4 fL [facility] Comment:Testing performed by : [facility], [address] [place] [address] MCH 28.0 27.1 - 33.3 pg [facility] Comment:Testing performed by : [facility], [address] [place] [address] MCHC 33.2 32.3 - 35.7 g/dL [facility] Comment:Testing performed by : [facility], [address] [place] [address] RDW CV 13.8 11.1 - 14.9 % [facility] Comment:Testing performed by : [facility], [address] [place] [address] NRBC abs 0.00 0.00 - 0.01 K/cumm [facility] Comment:Testing performed by : [facility], [address] [place] [address] Blood 08/13/2024 10:3 4 AM REAL TIME ANALYST 08/13/2024 10:37 AM REAL TIME ANALYST us Sameer Wilkerson MD LAB BLOOD ORDERABLES Final Resul t [facility]DO[facility] Department [place] [address] * Vitamin D 25 hydroxy (08/13/2024 10:34 AM REAL TIME ANALYST) Vitamin D 25-OH 40 30 - 80 ng/mL Blood 08/13/2024 10:3 4 AM REAL TIME ANALYST 08/13/2024 10:42 AM REAL TIME ANALYST us Sameer Wilkerson MD LAB BLOOD ORDERABLES Final Resul t Performing Organization Address [facility] Co de Phone Number [facility] [place] [address] * (ABNORMAL) Total testosterone (08/13/2024 10:34 AM REAL TIME ANALYST) Testosterone <5.0(L) 193.0 - 740.0 ng/dL Blood 08/13/2024 10:3 4 AM REAL TIME ANALYST 08/13/2024 11:02 AM REAL TIME ANALYST us Sameer Wilkerson MD LAB BLOOD ORDERABLES Final Resul t Performing Organization Address [facility] [place] [address] * PSA diagnostic (08/13/2024 10:34 AM REAL TIME ANALYST) PSA-Total <0.02 <=6.20 ng/mL Comment: Interpretive Data [...] revised 21. Blood 08/13/2024 10:3 4 AM REAL TIME ANALYST 08/13/2024 10:42 AM REAL TIME ANALYST us Sameer Wilkerson MD LAB BLOOD ORDERABLES Final Resul t Performing Organization Address City/[facility]/ZIP Co de Phone Number [facility] [address] [place] [address] * Lactate dehydrogenase (LD) (08/13/2024 10:34 AM REAL TIME ANALYST) Pathologist [facility] Lactate dehydrogenase (LDH) 190 100 - 250 Units/L Blood 08/13/2024 10:3 4 AM REAL TIME ANALYST 08/13/2024 10:42 AM REAL TIME ANALYST us Sameer Wilkerson MD LAB BLOOD ORDERABLES Final Resul t Performing Organization Address [facility] de Phone Number [facility] Department [place] [address] * (ABNORMAL) Comprehensive metabolic panel (08/13/2024 10:34 AM REAL TIME ANALYST) Pathologist [facility] Sodium 144 135 - 145 mmol/L Potassium, pl 4.1 3.3 - 4.9 mmol/L [facility] Chloride 104 97 - 110 mmol/L [facility] CO2 33(H) 22 - 32 mmol/L [facility] Anion gap 7 2 - 15 mmol/L [facility] BUN 35(H) 6 - 25 mg/dL [facility] Creatinine 1.64(H) 0.80 - 1.30 mg/dL [facility] Glucose 91 70 - 199 mg/dL [facility] Comment: Interpretive Data Fasting glucose >/= 126 [...] 2022. Calcium 10.4(H) 8.5 - 10.3 mg/dL [facility] Bilirubin, total 0.4 0.1 - 1.2 mg/dL [facility] Protein, pl 7.6 6.5 - 8.5 g/dL [facility] Albumin 4.4 3.5 - 5.0 g/dL [facility] Alk phos 75 40 - 130 Units/L [facility] ALT 10 7 - 55 Units/L [facility] AST 21 10 - 50 Units/L [facility] Blood 08/13/2024 10:3 4 AM REAL TIME ANALYST 08/13/2024 10:42 AM REAL TIME ANALYST us Sameer Wilkerson MD LAB BLOOD ORDERABLES Final Resul t [facility] Department [place] [address] * CT chest abdomen pelvis with contrast [...] Most Recently Relevant to Health Maintenance Insurance [id number] MEDICARE MEDICARE [facility] MEDICARE Advance Directives For more information, please contact: [phone] * Full Code (Latest Code Status on File) Date Activated Date Inactivated Comments 08/14/2024 7:31 AM 08/14/2024 3:16 PM * Full Code Date Activated Date Inactivated Comments 07/31/2024 7:44 AM 07/31/2024 4:57 PM Care Teams [employer] Captain Relationship Specialty Start Date End Date Mook Gonzalez MD PCP - General Family Medicine 09/29/22
--- OUTSIDE RECORDS SUMMARY | 2024-11-08 03:23 | XMS_ITS | Encounter Summary ---
Author Organization [facility] Address [address] [place] [address] Phone Care Team Providers Care Director Drug Safety Name Role Phone Doris Romero MD Primary Care Provider [phone] Mook Gonzalez MD Primary Care Provider [phone] Encounter Details Date Type Department Care Team (Late st Contact Info) Description 07/25/2022 Telephone [facility] Oncology [facility] 7th [place] [address] [place] [address] Kathrine Saldana RN Social History Tobacco Use Types Packs/Day Years Used Date Smoking Tobacco: Former Smokeless Tobacco: Never Sex and Gender Information Value Date Recorded Sex Assigned at Not on file Legal Sex Male 6:21 AM [employer] Gender Identity Not on file Sexual Orientation Not on file documented as of this encounter Plan of Treatment Not on file documented as of this encounter Visit Diagnoses Not on filedocumented in this encounter Care Teams Director Drug Safety Relationship Specialty Start Date End Date Doris Romero MD [address] [place] [address] PCP - General Family Medicine 01/26/17 09/28/22 Mook Gonzalez MD [address] [place] [address] PCP - General Family Medicine 09/29/22 documented as of this encounter
[2024-11-08 09:54] VITALS: BP 118/63; PULSE 56; RESP 20; TEMP 36; O2SAT 100; BMI 28.0
[2024-11-08] MEDS: LACTATED RINGERS 1,000 ML 150 ML IV CONT (09:57)
--- NOTE | 2024-11-08 10:18 | WPDANESEPPF ---
Anes - Initial Pre Proc Eval Procedure: Operation Date: 11/08/24 11:00 Proposed Procedures p Colonoscopy - Garrett Alvarado MD Date/Time: 11/08/24 10:18 Surgeon: Garrett Alvarado MD Pre Op Diagnosis: Personal history of colon polyps, unspecified Patient Data Age: 79 Gender: M Height: 1.83 m Weight: 93.9 kg Last Vital Signs Temp 96.8 F L 11/08/24 09:54 Pulse 56 L 11/08/24 09:54 Resp 20 11/08/24 09:54 BP 118/63 11/08/24 09:54 Pulse Ox 100 11/08/24 09:54 O2 Del Method Room Air 11/08/24 09:54 Allergies Allergy/AdvReac Type Severity Reaction Status Date / Time lisinopril Allergy Unknown Skin Verified 11/08/24 09:52 Reaction Home Medications ?Medication ?Instructions ?Recorded ?Confirmed ?Type fexofenadine 60 mg tablet (Ivette 60 mg PO Q12H PRN Sinus Symptoms 08/12/19 11/08/24 History Allergy) darolutamide 300 mg tablet 300 mg PO BID 01/13/23 11/08/24 History triamterene 37.5 1 tablet PO QAM #90 tabs 06/05/24 11/08/24 Rx mg-hydrochlorothiazide 25 mg tablet alprazolam 0.25 mg tablet 0.25 mg PO TID PRN anxiety #60 tabs 06/06/24 11/05/24 Rx Patient hx anesthesia problems: none Family hx anesthesia problems: none Results Review: All pre-operative results and documents have been reviewed as part of the pre-operative evaluation. [facility] Past Medical History Medical History (Updated 09/30/24 @ 13:28 by JOHNIE Franco) Bradycardia Obstructive sleep apnea (adult) (pediatric) Sleep apnea, unspecified Surgical History Surgical History (Updated 09/30/24 @ 13:28 by JOHNIE Franco) Cataract (lens) fragments in eye following cataract surgery, bilateral H/O prostatectomy Family History Family History Father Family history of elevated blood lipids Family history of lung cancer Mother Family history of elevated blood lipids Family history of cardiovascular disease Family history of rheumatic fever Family history of coronary artery disease Sibling Malignant neoplasm of prostate, Onset Age: 58 Grandparent Family history of malignant neoplasm of breast Social History Social History Smoking packs per day: 2 Smoking cigarettes per day: 40.0 Years smoked: 20 Smoking pack-years: 40.00 Smoking status: Former smoker Tobacco type: cigarettes Alcohol intake: current Drinks per week: 7 Alcohol use details: wine Substance use type: does not use Lack of Transportation: No Lack of Food: Never True Current Housing: I Have Housing Concerned About Future Housing: No Difficulty Paying Gas/Electric Bills: No Difficulty Paying for Meds: No Currently Unemployed: No Education: Master's Degree or Higher Difficulty w/ Childcare or Family Care: No Living arrangements: with family Spiritual care concerns: No Anes - Eval Final PreProcedure Day of Procedure 11/08/24 10:18 Patient weight: normal Heart: regular rate and rhythm Lungs: clear to auscultation Airway: Mallampati scale class II Neurological: alert and oriented Last oral intake: >/= 8 hours ASA classification: III Emergent: no Anesthetic plan: proceed Anesthesia type and monitoring: general GIVS and standard monitoring Results Review: All pre-operative results and documents have been reviewed as part of the pre-operative evaluation. Informed Consent: The patient's anesthetic plan and its attendant risks and benefits were discussed with the patient/family/POA. Questions were solicited and answers provided to the satisfaction of the patient/family/POA.
--- NOTE | 2024-11-08 10:32 | PM.HPGS ---
History of Present Illness History of Present Illness Consent: Risks, benefits, and alternatives have been discussed and questions answered. Patient agrees to proceed with procedure. Chief complaint: Personal history of colon polyps, unspecified Narrative: Rodrick Winters is a 79 year old male here for screening colonoscopy, had one but more than 10 years ago Review of Systems Review of Systems: All systems reviewed & are unremarkable except as noted in HPI and below PMFSH Past Medical History Medical History (Updated 11/08/24 @ 10:33 by Garrett Alvarado MD) Colon cancer screening Bradycardia Obstructive sleep apnea (adult) (pediatric) Sleep apnea, unspecified Surgical History Surgical History (Updated 09/30/24 @ 13:28 by YANELY FrancoC) Cataract (lens) fragments in eye following cataract surgery, bilateral H/O prostatectomy Family History Family History Father Family history of elevated blood lipids Family history of lung cancer Mother Family history of elevated blood lipids Family history of cardiovascular disease Family history of rheumatic fever Family history of coronary artery disease Sibling Malignant neoplasm of prostate, Onset Age: 58 Grandparent Family history of malignant neoplasm of breast Social History Social History Smoking packs per day: 2 Smoking cigarettes per day: 40.0 Years smoked: 20 Smoking pack-years: 40.00 Smoking status: Former smoker Tobacco type: cigarettes Alcohol intake: current Drinks per week: 7 Alcohol use details: wine Substance use type: does not use Lack of Transportation: No Lack of Food: Never True Current Housing: I Have Housing Concerned About Future Housing: No Difficulty Paying Gas/Electric Bills: No Difficulty Paying for Meds: No Currently Unemployed: No Education: Master's Degree or Higher Difficulty w/ Childcare or Family Care: No Living arrangements: with family Spiritual care concerns: No Meds Home Medications and Allergies Home Medications ?Medication ?Instructions ?Recorded ?Confirmed ?Type fexofenadine 60 mg tablet (Ivette 60 mg PO Q12H PRN Sinus Symptoms 08/12/19 11/08/24 History Allergy) darolutamide 300 mg tablet 300 mg PO BID 01/13/23 11/08/24 History triamterene 37.5 1 tablet PO QAM #90 tabs 06/05/24 11/08/24 Rx mg-hydrochlorothiazide 25 mg tablet alprazolam 0.25 mg tablet 0.25 mg PO TID PRN anxiety #60 tabs 06/06/24 11/05/24 Rx Allergies Allergy/AdvReac Type Severity Reaction Status Date / Time lisinopril Allergy Unknown Skin Verified 11/08/24 09:52 Reaction Vital Signs Vital Signs - 24 hr 11/08/24 09:54 Temperature 96.8 F L Pulse Rate 56 L Respiratory Rate 20 Blood Pressure 118/63 Pulse Oximetry 100 Oxygen Delivery Room Air Exam Const: General: comfortable and no acute distress HENMT: Face/Nose/Sinus: Normal nares present Eyes: General: appearance normal, both eyes and all related structures Neck: Neck: no JVD Resp: Auscultation: clear to auscultation bilaterally Cardio: Rate: regular rate Rhythm: regular rhythm GI: Inspection: non-distended GI Palp: Yes Soft to palpation Skin: General skin exam: normal color Neuro: General: gait normal Speech: normal speech Extrem: General: normal to inspection Psych: Mental Status: mental status grossly normal Assessment and Plan Assessment and plan (1) Colon cancer screening: Code(s): Z12.11 - Encounter for screening for malignant neoplasm of colon Status: Acute Assessment and Plan: colonoscopy
[2024-11-08 10:58] VITALS: BP 101/56; PULSE 58; RESP 27; O2SAT 98
[2024-11-08 11:08] VITALS: BP 111/59; PULSE 60; RESP 17; O2SAT 100
[2024-11-08 11:18] VITALS: BP 119/62; PULSE 65; RESP 17; O2SAT 100
== END 2024-11-08 11:32 | disposition home or self-care (01) ==
PROVIDERS: PCP Family Medicine; Referring Provider Nurse Practitioner Family; Visit Provider Internal Medicine Gastroenterology
PROC: 0DJD8ZZ Inspection of Lower Intestinal Tract, Via Natural or Artificial Opening Endoscopic (ICD-10-PCS; CPT 45378; principal; 2024-11-08 11:00)
DX: Z12.11 Encounter for screening for malignant neoplasm of colon (principal); D12.0 Benign neoplasm of cecum; K64.8 Other hemorrhoids; R00.1 Bradycardia, unspecified; G47.33 Obstructive sleep apnea (adult) (pediatric); Z98.890 Other specified postprocedural states; Z87.891 Personal history of nicotine dependence; Z80.1 Family history of malignant neoplasm of trachea, bronchus and lung; Z80.42 Family history of malignant neoplasm of prostate; Z80.3 Family history of malignant neoplasm of breast; Z82.49 Family history of ischemic heart disease and other diseases of the circulatory system
CPT/HCPCS: 45385; 88305; J2704; J7120